=== PATIENT | male | born 1945 | race Caucasian/White ===

== ENCOUNTER 2019-03-28 08:40 | Inpatient (IN) ==
[2019-03-20 14:04] LABS: Appearance,Urine CLEAR; Bacteria,Urine 0 /hpf (0); Bilirubin,Urine NEG (NEG); Color,Urine YELLOW; Culture Indicated,Urine NO; Glucose,Urine (UA) >=500 mg/dL (NEG); Ketones,Urine NEG (NEG); Leukocyte Esterase,Urine NEG /uL (NEG); Nitrate,Urine NEG (NEG); Protein,Urine NEG (NEG); Specific Gravity,Urine 1.015 (1.000-1.035); Urine Blood NEG mg/dL (<0.03); Urine RBC < 1 /hpf (0-1); Urine Squamous Epithelial Cell < 1 /hpf (0-4); Urine WBC 1 /hpf (0-4); Urobilinogen,Urine NEG (NEG)
[2019-03-20 14:42] LABS: Basophils # (Auto) 0.1 K/mcL (0.0-0.3); Basophils % (Auto) 1.5 % (0.0-2.0); Eosinophils # (Auto) 0.5 K/mcL (0.0-0.7); Eosinophils % (Auto) 6.4 % (0.0-7.0); Granulocytes % (Auto) 59.5 % (38.0-78.0); Hematocrit 53.3 % (41.0-55.0); Lymphocytes # (Auto) 1.7 K/mcL (1.5-4.8); Lymphocytes % (Auto) 21.4 % (15.5-49.0); Mean Cell Volume 93.9 fL (80.0-100.0); Mean Corpuscular HGB Conc 31.9 g/dL (31.0-36.0); Mean Platelet Volume 8.4 fL (7.4-10.4); Monocytes # (Auto) 0.9 K/mcL (0.1-0.9); Monocytes % (Auto) 11.2 % (1.0-12.0); Platelet Count 307 K/mcL (140-440); RBC 5.68 M/mcL (4.50-5.90); Red Cell Distribution Width 15.1 % (11.5-14.5); WBC 7.8 K/mcL (4.5-11.0)
[2019-03-20 14:52] LABS: Blood Urea Nitrogen 28 mg/dl (8-23); Calcium 10.4 mg/dl (8.6-10.4); Carbon Dioxide 26 mmol/L (22-30); Chloride 104 mmol/L (96-108); Glomerular Filtration Rate 66; Glucose 94 mg/dL (70-105); Potassium 4.6 mmol/L (3.3-5.1); Sodium 143 mmol/L (133-145)
[2019-03-20 15:01] LABS: Estimated Average Glucose(eAG) 143 mg/dL; Hemoglobin A1C 6.6 % HGB (4.0-6.0)
[~2019-03-28 08:40] MED LIST: 0.9 % SODIUM CHLORIDE 9 ML, KETOROLAC 30 MG, ROPIVACAINE HCL/PF 49.5 ML, EPINEPHrine 0.... IJ SCH; CELECOXIB 200 MG CAPSULE PO SCH; PREGABALIN 75 MG CAPSULE PO SCH; ceFAZolin 3 GM in DEXTROSE 5% IN WATER 50 ML IV SCH; oxyCODONE 10 MG TAB.ER.12H PO SCH
[2019-03-28] MEDS ORDERED: IPRATROPIUM/ALBUTEROL 3 ML AMPUL.NEB NEB PRN ×2 (09:00→13:35)
[2019-03-28] MEDS ORDERED: SCOPOLAMINE 1 PATCH PATCH TOPICAL PRN (09:00)
[2019-03-28] MEDS ORDERED: VANCOMYCIN 2,000 MG in 0.9 % SODIUM CHLORIDE 500 ML IV SCH (10:30)
[2019-03-28] MEDS ORDERED: PROPOFOL 200 MG/20 ML VIAL IV ONE (11:25)
[2019-03-28] MEDS ORDERED: GLYCOPYRROLATE 0.2 MG/ML VIAL IV ONE (11:25)
[2019-03-28] MEDS ORDERED: ePHEDrine 50 MG/ML AMPUL IV ONE (11:25)
[2019-03-28] MEDS ORDERED: ROPIVACAINE HCL/PF 20 ML VIAL IJ ONE (11:25)
[2019-03-28] MEDS ORDERED: KETAMINE 100 MG/ML ML IV ONE (11:25)
[2019-03-28] MEDS ORDERED: PHENYLEPHRINE 10 MG/ML VIAL IV ONE (11:25)
[2019-03-28] MEDS ORDERED: MIDAZOLAM 2 MG/2 ML VIAL IV ONE (11:25)
[2019-03-28] MEDS ORDERED: LIDOCAINE HCL/PF 100 MG/5 ML SYRINGE IV ONE (11:25)
[2019-03-28] MEDS ORDERED: ONDANSETRON 4 MG/2 ML VIAL IV ONE (11:25)
--- NOTE | 2019-03-28 13:14 | Brief Operative Note ---
Date of procedure: 03/28/19 Pre-op diagnosis: R knee osteoarthritis Post-op diagnosis: same Procedure: Right total knee arthroplasty Grafts/Implants: Yes (Maribell Triathlon CR 6 femur, 6 tibia, 11mm insert, 39 patella) Anesthesia: spinal Findings: arthritis Complications: none Surgeon: Mil Giraldo Braid Pattern Setter: Kenrick Huff Estimated blood loss (cc): 30 Specimens Removed/Pathology: none sent Condition: stable Disposition: PACU
[2019-03-28] MEDS ORDERED: MAGNESIUM HYDROXIDE 30 ML ORAL.SUSP PO PRN (13:18)
[2019-03-28] MEDS ORDERED: BISACODYL 10 MG SUPP.RECT PR PRN (13:18)
[2019-03-28] MEDS ORDERED: BENZOCAINE/MENTHOL 1 LOZENGE PO PRN (13:18)
[2019-03-28] MEDS ORDERED: POLYETHYLENE GLYCOL 3350 17 GM PACKET PO PRN (13:18)
[2019-03-28] MEDS ORDERED: TRANEXAMIC ACID 1,000 MG/10 ML VIAL IV ONE (13:18)
[2019-03-28] MEDS ORDERED: DEXTROSE 31 GM ORAL.SUSP PO PRN (13:18)
[2019-03-28] MEDS ORDERED: ONDANSETRON 4 MG/2 ML VIAL IV PRN ×2 (13:18→13:35)
[2019-03-28] MEDS ORDERED: DEXTROSE 50% 50 ML VIAL IV PRN (13:18)
[2019-03-28] MEDS ORDERED: HYDROmorphone 2 MG/ML VIAL IV PRN ×2 (13:18→13:35)
[2019-03-28] MEDS ORDERED: FLEETS ADULT ENEMA PR PRN (13:18)
--- NOTE | 2019-03-28 13:28 | Discharge Summary ---
Ortho Discharge - TKA - Patient Instructions Diet: Consistent Carbohydrate Activity: weight bearing as tolerated Total Knee Protocol: For Total Knee: Start ROM JORGE with stationary bike or rocking chair. Work on gaining full extension of knee. Posterior dislocation precautions provided. Hip abductor strengthening and gait training instructions provided. Apply Cryocuff as instructed. Dressing Care: Aquacel Ag - leave on for 5 days - Follow Up Plan Follow Up Appointments: Kenrick Huff PA-C [Physician Inspector Of Weights And Measures] - Disposition: [facility] SNF Prognosis: Good Rehab Potential: Good I certify that the patient requires SNF services: Yes - Orders For Discharge Additional Discharge Orders: Physical Therapy at Discharge - TKA Location: None Selected Toilet Riser Discharge Order Location: None Selected Walker Location: None Selected
[2019-03-28] MEDS ORDERED: METHOCARBAMOL 1,000 MG/10 ML VIAL IV PRN (13:35)
[2019-03-28] MEDS ORDERED: ACETAMINOPHEN 1,000 MG/100 ML BOTTLE IV ONE (13:35)
[2019-03-28] MEDS ORDERED: MEPERIDINE 25 MG/ML SYRINGE IV PRN (13:35)
[2019-03-28] MEDS ORDERED: LACTATED RINGERS 1,000 ML IV SCH (13:45)
[2019-03-28] MEDS: 0.9 % SODIUM CHLORIDE 1,000 ML IV SCH ×2 (14:30→23:01)
--- NOTE | 2019-03-28 14:52 | XRay Report ---
CLINICAL INFORMATION: Postsurgical follow-up TECHNIQUE: AP, crosstable lateral, patellar views COMPARISON: None. FINDINGS: Status post right total knee arthroplasty. Femoral and tibial component are in anatomic positions. There is postsurgical soft tissue and intra-articular gas IMPRESSION: Status post right total knee arthroplasty Interpreted and Authenticated by: Alfonso Rodriguez 03/28/19
[2019-03-28] MEDS: INSULIN LISPRO 1 UNIT/0.01 ML UNIT SQ SCH ×2 (16:45→22:59)
[2019-03-28] MEDS: 0.9 % SODIUM CHLORIDE 10 ML SYRINGE IV SCH ×2 (16:46→23:02)
[2019-03-28] MEDS: KETOROLAC 15 MG/ML VIAL IV SCH ×2 (18:05→23:16)
[2019-03-28] MEDS: HYDROcodone/APAP 10/325MG TABLET PO PRN ×2 (18:05→23:00)
[2019-03-28] MEDS: ceFAZolin 1 GM VIAL IV SCH (19:11)
[2019-03-28] MEDS ORDERED: ATORVASTATIN 20 MG TABLET PO SCH (21:00)
[2019-03-28] MEDS: ASPIRIN 81 MG TAB.CHEW PO SCH (23:00)
[2019-03-28] MEDS: metFORMIN 500 MG TAB.XL.24H PO SCH (23:00)
[2019-03-28] MEDS: DOCUSATE SODIUM 100 MG CAPSULE PO SCH (23:00)
[2019-03-28] MEDS: SENNOSIDES 1 TABLET PO SCH (23:01)
[2019-03-29] MEDS: ceFAZolin 1 GM VIAL IV SCH (03:06)
[2019-03-29] MEDS: 0.9 % SODIUM CHLORIDE 1,000 ML IV SCH ×2 (05:20→13:36)
[2019-03-29] MEDS: 0.9 % SODIUM CHLORIDE 10 ML SYRINGE IV SCH ×3 (05:52→22:26)
[2019-03-29] MEDS: KETOROLAC 15 MG/ML VIAL IV SCH ×3 (05:52→18:24)
[2019-03-29] MEDS: HYDROcodone/APAP 10/325MG TABLET PO PRN ×5 (06:30→22:26)
[2019-03-29] MEDS ORDERED: LEVOTHYROXINE 150 MCG TABLET PO SCH (07:30)
--- NOTE | 2019-03-29 08:04 | Orthopedic Progress Note ---
Subjective Patient information: Note initiated : 03/29/19 at 8:01 am Service Date, if different from initiated Date: [] Patient: Delgado Carmen 74 y/o M admitted on 03/28/19 for Right Total Knee Arthroplasty Young. He is POD 1. Overall doing well, was ambulating well with PT this AM. Denies SOB, abd pain, nausea, vomiting. His pain is managed. Chief Complaint: [s/p Right TKA with Young.] Pertinent ROS: negative except noted in HPI. Objective Vital signs: Vital Signs Temp Pulse Pulse Pulse Resp BP Pulse Ox 03/29/19 07:32 97.8 F 20 108/64 92 03/29/19 05:58 113/60 03/29/19 02:45 97.6 F 70 16 92/55 92 03/28/19 23:13 97.5 F 69 18 105/65 93 03/28/19 20:40 97.8 F 56 L 18 112/68 96 03/28/19 17:42 60 126/64 94 03/28/19 15:11 62 111/65 94 03/28/19 14:55 57 L 110/63 94 03/28/19 14:40 59 L 117/63 95 03/28/19 14:17 96.7 F L 56 L 14 137/58 94 03/28/19 14:02 96.8 F L 64 11 L 133/56 95 03/28/19 13:47 96.9 F L 69 17 145/59 95 03/28/19 13:42 69 13 118/66 98 03/28/19 13:37 72 16 152/67 100 03/28/19 13:32 97.1 F 71 12 155/68 99 03/28/19 13:25 58 L 110/82 95 03/28/19 09:15 96.8 F L 73 18 140/72 92 Intake and Output 03/28/19 03/29/19 03/29/19 21:59 05:59 13:59 Intake Total 300 1700 Output Total 425 150 Balance -125 1550 Intake: IV 100 1000 Sodium Chloride 0.9% 1,000 ml @ 1000 125 mls/hr IV .Q8H GAIL Rx#: [id number] Oral 200 700 Output: Urine Catheter Amount 225 Void Amount 200 150 Other: Meal Dinner Percent of Meal Consumed 100% Feeding Ability Independent Urine Appearance Clear Urine Color Bright Yellow Dark Yellow Urine Odor Strong Strong Weight 297 lb 8 oz Intake & Output: Intake & Output 03/28/19 03/29/19 03/29/19 21:59 05:59 13:59 Intake Total 300 1700 Output Total 425 150 Balance -125 1550 Weight 297 lb 8 oz Intake: IV 100 1000 Sodium Chloride 0.9% 1,000 ml @ 1000 125 mls/hr IV .Q8H GAIL Rx#: [id number] Oral 200 700 Output: Urine Catheter Amount 225 Void Amount 200 150 Other: Meal Dinner Percent of Meal Consumed 100% Feeding Ability Independent Urine Appearance Clear Urine Color Bright Yellow Dark Yellow Urine Odor Strong Strong Dressing: Yes intact (small amount of dried blood noted on char wrap. outlined with marker.) Weight bearing status: as tolerated Neurological exam IM: Yes alert, Yes oriented X3 Extremities exam IM: No calf tenderness, Yes normal inspection, Yes Foot pink and warm, Yes neurovascular intact - Labs CBC & BMP: 03/20/19 11:41 03/20/19 11:41 Labs: 03/20/19 11:41 Hgb 17.0 H Hct 53.3 Assessment and Plan (1) S/P total knee arthroplasty Status: Acute - Narrative A/P Narrative: Pt is a 74 yo male 1 day s /p right Young TKA with Dr. Giraldo. Overall doing well. Pain is controlled. Continue to work with PT. Continue DVT prophylaxis with ASA 81 mg BID. Continue current pain medications. Keep dressing on for 5 days.
[2019-03-29] MEDS: INSULIN LISPRO 1 UNIT/0.01 ML UNIT SQ SCH ×4 (08:08→20:28)
[2019-03-29] MEDS: LEVOTHYROXINE 75 MCG TABLET PO SCH (08:12)
[2019-03-29] MEDS: FENOFIBRATE 43 MG CAPSULE PO SCH (09:17)
[2019-03-29] MEDS: ASPIRIN 81 MG TAB.CHEW PO SCH ×2 (09:17→20:26)
[2019-03-29] MEDS: PIOGLITAZONE 15 MG TABLET PO SCH (09:17)
[2019-03-29] MEDS: DOCUSATE SODIUM 100 MG CAPSULE PO SCH ×2 (09:17→20:25)
[2019-03-29] MEDS: CETIRIZINE 10 MG TABLET PO SCH (09:17)
[2019-03-29] MEDS: SPIRONOLACTONE 25 MG TABLET PO SCH (09:17)
[2019-03-29] MEDS: LISINOPRIL 10 MG TABLET PO SCH ×2 (09:17→09:19)
[2019-03-29] MEDS: SENNOSIDES 1 TABLET PO SCH (20:25)
[2019-03-29] MEDS: metFORMIN 500 MG TAB.XL.24H PO SCH (20:26)
[2019-03-30] MEDS: KETOROLAC 15 MG/ML VIAL IV SCH ×2 (00:08→05:44)
[2019-03-30] MEDS: HYDROcodone/APAP 10/325MG TABLET PO PRN (05:43)
[2019-03-30] MEDS: 0.9 % SODIUM CHLORIDE 10 ML SYRINGE IV SCH (05:44)
--- NOTE | 2019-03-30 07:32 | Discharge Summary ---
Providers - Providers Patient information: Note initiated : 03/30/19 at 7:30 am Service Date, if different from initiated Date: [] Patient: Delgado Carmen 74 y/o M admitted on 03/28/19 for Right Total Knee Arthroplasty Young . Chief Complaint: [] Discharge date: 03/30/19 Hospitalization Hospital course: Pt was admitted for a R TKA. Pt underwent the procedure on the day of admission. Pt spent two nights on the floor for IV pain meds, IV abx and PT. Pt discharged post-op day 2 to SNF. Will take ASA for DVT prophylaxis. Will f/u at [facility] in 2 weeks. Discharge diagnosis: R knee OA Exam - Exam Clean and dry: No (mild bloody drainage) Weight bearing status: as tolerated Ortho Discharge - TKA - Patient Instructions Diet: Regular Diet, Consistent Carbohydrate Activity: weight bearing as tolerated Total Knee Protocol: For Total Knee: Start ROM JORGE with stationary bike or rocking chair. Work on gaining full extension of knee. Posterior dislocation precautions provided. Hip abductor strengthening and gait training instructions provided. Apply Cryocuff as instructed. - Follow Up Plan Follow Up Appointments: Kenrick Huff PA-C [Physician Telephone Service Representative] - Disposition: Xfer SNF Prognosis: Good Rehab Potential: Good I certify that the patient requires SNF services: Yes Overall status at discharge: patient is progressing back to baseline - Orders For Discharge Prescriptions: Aspirin 81 mg PO BID #30 tab.chew HYDROcodone/APAP 10/325MG [[place] 10-325Mg] 1 - 2 tab PO Q4H PRN #90 tab PRN Reason: Pain Additional Discharge Orders: Physical Therapy at Discharge - TKA Location: None Selected Toilet [facility]iser Discharge Order Location: None Selected Walker Location: None Selected Pending Studies Resuscitation Status Full Code Diet Consistent Carbohydrate Diet Start TueMar 28 1321 Hydrocodone Bitart/Acetaminophen ([place] 10/325mg) 0 tab PO Q4HP PRN PRN Reason: PAIN LEVEL 3-6 Last Admin: 03/30/19 05:43 Dose: 1 tab Documented by: Admin: 03/29/19 22:26 Dose: 1 tab Documented by: Admin: 03/29/19 16:32 Dose: 1 tab Documented by: Admin: 03/29/19 10:56 Dose: 1 tab Documented by: Admin: 03/29/19 09:18 Dose: 1 tab Documented by: Admin: 03/29/19 06:30 Dose: 1 tab Documented by: Admin: 03/28/19 23:00 Dose: 1 tab Documented by: Admin: 03/28/19 18:05 Dose: 1 tab Documented by: JULIO CÉSAR Aspirin (Aspirin) 81 mg PO BID [facility] Last Admin: 03/29/19 20:26 Dose: 81 mg Documented by: Admin: 03/29/19 09:17 Dose: 81 mg Documented by: Admin: 03/28/19 23:00 Dose: 81 mg Documented by: FRANSISCO Atorvastatin Calcium (Lipitor) 40 mg PO Q48@2100 [facility] Last Admin: 03/28/19 23:00 Dose: 40 mg Documented by: FRANSISCO Cetirizine HCl (Zyrtec) 10 mg PO DAILY [facility] Last Admin: 03/29/19 09:17 Dose: 10 mg Documented by: RONADL Diagnostic Test (Pha) (Accu-Chek) [address] [facility] Last Admin: 03/29/19 20:26 Dose: 1 each Documented by: Admin: 03/29/19 16:36 Dose: 1 each Documented by: Admin: 03/29/19 12:02 Dose: 1 each Documented by: Admin: 03/29/19 08:07 Dose: 1 each Documented by: Admin: 03/28/19 22:59 Dose: 1 each Documented by: Admin: 03/28/19 16:45 Dose: 1 each Documented by: JULIO CÉSAR Docusate Sodium (Colace) 100 mg PO BID [facility] Last Admin: 03/29/19 20:25 Dose: 100 mg Documented by: Admin: 03/29/19 09:17 Dose: 100 mg Documented by: Admin: 03/28/19 23:00 Dose: 100 mg Documented by: FRANSISCO Fenofibrate (Antara) 129 mg PO DAILY [facility] Last Admin: 03/29/19 09:17 Dose: 129 mg Documented by: RONALD Insulin Human Lispro (Humalog) 0 unit SQ [facility]; Protocol Last Admin: 03/29/19 20:28 Dose: Not Given Documented by: Admin: 03/29/19 16:36 Dose: Not Given Documented by: Admin: 03/29/19 12:02 Dose: Not Given Documented by: Admin: 03/29/19 08:08 Dose: Not Given Documented by: Admin: 03/28/19 22:59 Dose: 2 units Documented by: Admin: 03/28/19 16:45 Dose: Not Given Documented by: JULIO CÉSAR Ketorolac Tromethamine (Toradol) 15 mg IV Q6 [facility] Stop: 03/30/19 12:01 Last Admin: 03/30/19 05:44 Dose: 15 mg Documented by: Admin: 03/30/19 00:08 Dose: 15 mg Documented by: Admin: 03/29/19 18:24 Dose: 15 mg Documented by: Admin: 03/29/19 12:26 Dose: 15 mg Documented by: Admin: 03/29/19 05:52 Dose: 15 mg Documented by: Admin: 03/28/19 23:16 Dose: 15 mg Documented by: Admin: 03/28/19 18:05 Dose: 15 mg Documented by: JULIO CÉSAR [facility]) [facility] Admin: 03/29/19 08:12 Dose: 225 mcg Documented by: RONALD Lisinopril (Zestril) 10 mg PO DAILY [facility] Last Admin: 03/29/19 09:19 Dose: Not Given Documented by: RONALD Metformin HCl (Glucophage) 1,000 mg PO [facility] Last Admin: 03/29/19 20:26 Dose: 1,000 mg Documented by: Admin: 03/28/19 23:00 Dose: 1,000 mg Documented by: FRANSISCO Canagliflozin [ (Invokana] 300 Mg Tab) 1 dose PO DAILY [facility] Last Admin: 03/29/19 10:56 Dose: 1 dose Documented by: RONALD Pioglitazone HCl (Actos) 15 mg PO DAILY [facility] Last Admin: 03/29/19 09:17 Dose: 15 mg Documented by: RONALD Senna (Senokot) 2 tab PO [facility] Last Admin: 03/29/19 20:25 Dose: 2 tab Documented by: Admin: 03/28/19 23:01 Dose: Not Given Documented by: FRANSISCO Sodium Chloride (Saline Flush) 10 ml IV Q8 [facility] Last Admin: 03/30/19 05:44 Dose: 10 ml Documented by: Admin: 03/29/19 22:26 Dose: 10 ml Documented by: Admin: 03/29/19 16:33 Dose: 10 ml Documented by: Admin: 03/29/19 05:52 Dose: 10 ml Documented by: Admin: 03/28/19 23:02 Dose: Not Given Documented by: Admin: 03/28/19 16:46 Dose: Not Given Documented by: JULIO CÉSAR Spironolactone (Aldactone) 25 mg PO DAILY [facility] Last Admin: 03/29/19 09:17 Dose: 25 mg Documented by: RONALD Shift Summary 03/30/19 02:48 Shift Summary by Nory Metzger A&O x4. Pt up with FWW and SBA. Pt ambulates to the BR. VSS on RA - low 90s oxygen saturation during the night. Pt does normally wear a CPAP at home. Blood sugar was 127. Pt medicated with [place] 1 tab x1 and scheduled toradol this shift for pain. IV to L forearm is SL and patent. Pt has shadow drainage to R knee dressing. Plans to D/C today at 1030 to [facility]. Initialized on 03/30/19 02:48 - END OF NOTE
[2019-03-30] MEDS: FENOFIBRATE 43 MG CAPSULE PO SCH (08:10)
[2019-03-30] MEDS: SPIRONOLACTONE 25 MG TABLET PO SCH (08:10)
[2019-03-30] MEDS: PIOGLITAZONE 15 MG TABLET PO SCH (08:10)
[2019-03-30] MEDS: CETIRIZINE 10 MG TABLET PO SCH (08:10)
[2019-03-30] MEDS: LISINOPRIL 10 MG TABLET PO SCH (08:10)
[2019-03-30] MEDS: ASPIRIN 81 MG TAB.CHEW PO SCH (08:10)
[2019-03-30] MEDS: LEVOTHYROXINE 75 MCG TABLET PO SCH (08:10)
[2019-03-30] MEDS: DOCUSATE SODIUM 100 MG CAPSULE PO SCH (08:10)
[2019-03-30] MEDS: INSULIN LISPRO 1 UNIT/0.01 ML UNIT SQ SCH (08:37)
[2019-03-30] MEDS ORDERED: ERGOCALCIFEROL (VITAMIN D2) 50,000 UNIT CAPSULE PO SCH (09:00)
--- NOTE | 2019-04-04 10:51 | Operative Note ---
DATE OF OPERATION: 03/28/2019 PREOPERATIVE DIAGNOSIS: Right knee osteoarthritis. POSTOPERATIVE DIAGNOSIS: Right knee osteoarthritis. PROCEDURE PERFORMED: Right robotic-assisted total knee arthroplasty placing a Golden Triathlon cruciate retaining size 6 femoral component, size 6 tibia, 11 mm tibial insert with a 39 mm patella. SURGEON: Mil Giraldo M.D. DATA CONTROL CLERK: Garcia Huff PA-C. The PA's assistance was required for the safe and efficient completion of the entire case. This provider's expertise and technical skill were required throughout the case. The PA assisted with preoperative coordination, intraoperative retraction, wound closure, dressing and splint application, as well as postoperative documentation and care coordination. ANESTHESIA: Spinal plus general. DRAINS: None. SPECIMENS: Bone cuts which were discarded. BLOOD LOSS: 30 mL. COMPLICATIONS: None. POSTOPERATIVE CONDITION: Stable. INDICATIONS FOR SURGERY: A 74-year-old male with longstanding progressive worsening right knee pain. X-ray showed severe [id number] osteoarthritis. FINDINGS AT SURGERY: Severe arthritis. Post implantation showed good limb alignment and joint stability and patellar tracking. PROCEDURE IN DETAIL: The patient had been seen preoperatively. Informed consent had been obtained after discussion of risks and benefits of surgery. Risks including, but not limited to, bleeding, possibly requiring transfusion; infection, possibly requiring implant removal, prolonged IV antibiotics; injury to nerves, blood vessels, and other surrounding structures; anesthetic risks; incomplete or no resolution of symptoms; stiffness; swelling; instability; DVT and pulmonary embolus risks; and the possibility of further revision surgery. He understood and wished to proceed. The correct operative site was marked and patient was taken to the operating room after spinal anesthesia was given. LMA general was performed and then the right lower extremity was carefully prepped and draped in normal sterile fashion, and a time-out was performed verifying patient name, operative site, and plan. Esmarch was used to exsanguinate the extremity and tourniquet was inflated. Ioban was used to cover all skin surfaces and a standard midline incision was made with a scalpel through skin and subcutaneous tissue. Irrisept was irrigated and then a medial parapatellar arthrotomy made. Subperiosteal exposure was done of the anterior medial tibia. Anterior horns of the menisci were removed as well as ACL was transected. Femoral and tibial checkpoints were placed. We placed two stab incisions over the femur and two over the tibia and bicortical pins were placed and the arrays were connected. We then did our hip center of rotation check. A probe was used to identify the medial and lateral malleolus, as well as do double-checks of our femoral and tibial check points. Blue probe was then used to do our mapping. We then used a rongeur to remove osteophytes. We checked our flexion-extension gaps with the spoons and then adjusted the implants virtually to get 17 mm gaps everywhere except the lateral extension. We then used the robotic arm to make our bone cuts. The tibia was repaired, externally rotating as bone coverage would allow, and then boss reamer and keel punch used to prepare. Keeled tibial trial was placed. Femur was elevated and curved osteotome used to remove posterior osteophytes. We then placed the femoral trial. A 9 insert trial was impacted, and the knee was taken into extension. We then measured the patellar thickness. Freehand resection was done and sized this to a 39 which was medialized. Holes were drilled and patellar trial was placed. We were within a millimeter of our pre-resection thickness. We checked our patellar tracking which was good, so we went ahead and removed trial implants. Definitive implants were opened except for the insert. We did have some hyperextension, however, so we felt we would probably go up on the poly thickness. Antibiotic cement was mixed. We irrigated the cut bone surfaces with Irrisept, after a minute pulse lavaged with saline. We then cemented the tibia. Excess cement was removed. We cemented the femur and then the excess cement removed. A 9 insert trial was placed. The knee was taken into extension and then the patellar button was cemented. We filled the joint with Irrisept after removing checkpoints. We were almost into hyperextension, so I went ahead and removed the arrays and pins. After cement had fully hardened, we flexed the knee up and removed any excess cement. We removed the 9 insert and opened an 11. We injected pain cocktail in the posterior capsule and pericapsular and subcutaneous tissues. We then irrigated Irrisept onto the tray and impacted the insert. We then filled the joint with Irrisept, after a minute pulse lavaged with saline. The knee was then taken to about 45 degrees of flexion. Interrupted #2 FiberWire [id number] were used around the superior quadrant of the patella, interrupted #1 Vicryl around the inferior quadrant, running #1 Vicryl was used for patellar tendon and quad tendon. Final Irrisept irrigation was done, after a minute final pulse lavage, and then 2-0 Monocryl was used for subcutaneous and shelly for skin. Xeroform and sterile dressing were applied. Tourniquet was released. The patient was awakened, extubated, and transferred to recovery in stable condition. BJB:erin Job ID: [id number] Doc ID: [id number] Mil Giraldo MD
== END 2019-03-30 10:20 | DRG 470 ==
LOC: MEDSUR 08:40
PROVIDERS: ADMIT Orthopaedic Surgery; ATTEND Orthopaedic Surgery